=== PATIENT | male | born 1945 | race Caucasian/White ===

== ENCOUNTER 2024-11-28 12:48 | Outpatient (CLI) | payer OTHER, SELFPAY ==
--- NOTE | ~2024-11-28 | CT_ITS ---
Exam: CT chest without contrast Clinical History: [Nicotine dependence, unspecified ] Comparison: [ CT chest 09/05/2022] Technique: Multiple axial CT images of the chest without with IV contrast. Sagittal and coronal reformatted images were obtained. FINDINGS: Lungs and pleura: [ Tracheobronchial tree is patent. No pneumothorax. No pleural effusion. No free air under the diaphragm. No focal pulmonary consolidation.] Mild biapical scarring, unchanged. 5 mm subpleural nodular density in the right lower lobe. Mediastinum and pulmonary harini: [ No mass or adenopathy.] Axillary/intramammary and supraclavicular: [ No mass or adenopathy.] Heart and great vessels: [ Normal heart size.[ [ No pericardial effusion.] [ No aneurysm.] Mildly calcified thoracic aorta. Chest Wall: [ Unremarkable.] Upper Abdomen: [ No significant findings.] Osseous structures: [ No acute fracture or destructive lesion.] [ Multilevel degenerative change in the visualized spine.] Additional findings: [ None of significance.] IMPRESSION: Lung-RADS category 3: Probably benign. Further evaluation is recommended with noncontrast low-dose chest CT in 6 months. Reviewed, dictated and finalized at location [facility]. IMPRESSION: Lung-RADS category 3: Probably benign. Further evaluation is recommended with n oncontrast low-dose chest CT in 6 months.
== END 2024-11-28 12:49 | disposition home or self-care (01) ==
PROVIDERS: PCP Nurse Practitioner Family; Visit Provider Nurse Practitioner Family
DX: Z12.2 Encounter for screening for malignant neoplasm of respiratory organs (principal); Z87.891 Personal history of nicotine dependence
CPT/HCPCS: 71271